=== PATIENT | male | born 1990 | race American Indian/Alaskan Native ===

== ENCOUNTER 2019-11-01 13:58 | Emergency (ER) | payer SELFPAY ==
--- NOTE | 2019-11-01 14:50 | Event Note ---
ED Screening Note Date of service: 11/01/19 Time: 14:46 ED Screening Note: 28 y o male presents with uri sx x 3 days This initial assessment/diagnostic orders/clinical plan/treatment(s) is/are subject to change based on patients health status, clinical progression and re- assessment by fellow clinical providers in the ED. Further treatment and workup at subsequent clinical providers discretion. Patient/guardian urged not to elope from the ED as their condition may be serious if not clinically assessed and managed. Initial orders include: cxr
--- NOTE | 2019-11-01 15:54 | XRay Report ---
CHEST 2 VIEWS INDICATION: cough. COMPARISON: none FINDINGS: Support devices: None. Heart: Within normal limits. Lungs: No acute air space or interstitial disease. Pleura: No significant pleural effusion. No pneumothorax. Additional findings: None. IMPRESSION: 1. No acute findings. Signer Name: Dwayne Royal MD Signed: 11/01/2019 3:50 PM Workstation Name: [id number]
--- NOTE | 2019-11-01 17:19 | Emergency Department Report ---
Minor Respiratory - HPI Chief Complaint: Upper Respiratory Infection Stated Complaint: COLD SX Time Seen by Provider: 11/01/19 18:00 Duration: 1 week Pain Location: Other (bodyaches 210 achy i) Severity: mild Minor Respiratory: Yes Rhinorrhea (nasal congestion), Yes Able to Tolerate Fluids, Yes Cough (dry cough), Yes Sick Contacts, Yes Fever (and chills), No Sore Throat, No Ear Pain, No Hemoptysis, No Chest Pain, No Shortness of Breath Other History: This is a 28-year-old male here report that he has been having cough, body chills and feels feverish. He said it started with runny nose and congestion 1 week ago and now he is having fever and cough over the last 4 days assessment worsening. 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 Patient states that he has one kidney but he is not having any problem with his kidney function. Denies any shortness of breath or chest pain. Denies any abdominal pain. Bodyaches. 310 and achy. ED Review of Systems ROS: Stated complaint: COLD SX Other details as noted in HPI Constitutional: chills Eyes: denies: eye discharge ENT: congestion. denies: ear pain, throat pain Respiratory: cough. denies: shortness of breath, SOB with exertion, SOB at rest, wheezing Cardiovascular: denies: chest pain, palpitations, edema, syncope Gastrointestinal: denies: abdominal pain, nausea, vomiting Genitourinary: denies: hematuria Musculoskeletal: myalgia. denies: back pain, joint swelling, arthralgia Skin: denies: rash Neurological: denies: headache, numbness, paresthesias, abnormal gait, vertigo ED Past Medical Hx - Past Medical History Previous Medical History?: No - Surgical History Past Surgical History?: Yes Additional Surgical History: left nephrectomy - Social History Smoking Status: Never Smoker Substance Use Type: None Minor Respiratory Exam - Exam General: Vital signs noted. No distress. Alert and acting appropriately. This is a 28-year-old male well-nourished well-developed in no acute distress. HEENT: Yes Moist Mucous Membranes (uvula midline and oral airways patent.), Yes Rhinorrhea (nasal congestion with erythema and mucosal swelling.), Yes Maxillary Tenderness, No Pharyngeal Erythema, No Pharyngeal Exudates, No Conjuctival Injection, No Frontal Tenderness Ear: Neither TM Bulge (bilateral middle ear effusion), Neither TM Erythema, Neither EAC Pain, Neither EAC Discharge Neck: Yes Supple (full range of motion), No Adenopathy Lungs: Yes Good Air Exchange, Yes Cough (dry cough), No Wheezes, No Ronchi, No Stridor, No Labored Respirations, No Retractions, No Use of Accessory Muscles, No Other Abnormal Lung Sounds Heart: Yes Regular, No Murmur Abdomen: Yes Normal Bowel Sounds (all quadrants), No Tenderness (all quadrants), No Peritoneal Signs Skin: No Rash, No Edema Neurologic: Alert and oriented, no deficits. Musculoskeletal: Unremarkable. No clubbing, cyanosis or edema. +2 pulses all extremities ED Course Vital Signs 11/01/19 14:44 Temperature 98.4 F Pulse Rate 92 H Respiratory 20 Rate Blood Pressure 146/96 O2 Sat by Pulse 99 Oximetry - Reevaluation(s) Reevaluation #1: 11/01/19 19:04 Patient stable throughout ED course. ED Medical Decision Making - Radiology Data Radiology results: report reviewed Operations And Maintenance Technician dictated by radiologist and report reviewed by myself. Please see details below Findings [facility], [place] [address] [place] [address] XRay Report Signed Patient: DUNIA RUBIO MR#: [id number] : 1990 Acct:[id number] Age/Sex: 28 / M ADM Date: 11/01/19 Loc: ED Attending Dr: Ordering Physician: BRUNO BENITEZ Date of Service: 11/01/19 Procedure(s): XR chest routine 2V Accession Number(s): [id number] cc: BRUNO BENITEZ Fluoro Time In Minutes: CHEST 2 VIEWS INDICATION: cough. COMPARISON: none FINDINGS: Support devices: None. Heart: Within normal limits. Lungs: No acute air space or interstitial disease. Pleura: No significant pleural effusion. No pneumothorax. Additional findings: None. IMPRESSION: 1. No acute findings. Signer Name: Dwayne Royal MD Signed: 11/01/2019 3:50 PM Workstation Name: [id number] Transcribed By: BERNARDO Dictated By: Dwayne Royal MD Electronically Authenticated By: Dwayne Royal MD Signed Date/Time: 11/01/19 1550 DD/ 1541 - Medical Decision Making This is a 28-year-old male here for cough and cold symptoms this would worsen over the last week. Patient had chest x-ray which shows no acute findings. I discussed the patient diagnoses, x-ray findings and treatment plans and is in agreement. Patient with sinusitis and will be treated with prednisone, amoxicillin, Zyrtec and Flonase. I discussed with him that he needs to follow up with his primary care physician and if he does not have one to follow up at [facility] and he voices understanding. - Differential Diagnosis PNA, bronchitis, viral syndrome, sinusitis, urinary cough and congestion Critical care attestation.: If time is entered above; I have spent that time in minutes in the direct care of this critically ill patient, excluding procedure time. ED Disposition Clinical Impression: Sinusitis, acute Qualifiers: Sinusitis location: unspecified location Recurrence: not specified as recurrent Qualified Code(s): J01.90 - Acute sinusitis, unspecified Disposition: DC-01 TO HOME OR SELFCARE Is pt being admited?: No Does the pt Need Aspirin: No Condition: Stable Instructions: Sinusitis (ED) Additional Instructions: Please state medication as prescribed follow up Primary care physician in 2-3 days If condition Worsens, return to the emergency room If he develops a fever or pain, take Tylenol only and referred to dosing chart on Tylenol bottle for details on doses and Take medication as prescribed Referrals: PRIMARY CAREMD [Primary Care Provider] - 2-3 Days [facility] [Outside] - 2-3 Days Forms: Work/School Release Form(ED)
[2019-11-01 19:26] VITALS: BP 128/77
== END 2019-11-01 19:20 | disposition home or self-care (01) ==
LOC: ED 13:58
DX: J34.89 Other specified disorders of nose and nasal sinuses (principal); J01.90 Acute sinusitis, unspecified
CPT/HCPCS: 71046